=== PATIENT | female | born 1990 | race Caucasian/White ===

== ENCOUNTER 2017-08-18 01:16 | Emergency (ER) | payer OTHER ==
[~2017-08-18] VITALS: Ht 152.4 cm; Wt 48.0 kg
[2017-08-18 01:53] VITALS: BP 114/69; PULSE 64; RESP 18; TEMP 98.4
--- NOTE | 2017-08-18 04:26 | PD ---
HPI Chief Complaint: Psychiatric Symptoms Time Seen by Provider: 04:09 Travel History International Travel<30 days: No Contact w/Intl Traveler<30days: No Traveled to known affect area: No History of Present Illness HPI 27-year-old white female presents emergency department under an EXPARTE. According to the Caballero act the patient has a eating disorder, there is no food at the house and the patient had some twitching. The patient was seen in the emergency department and [place] and medically cleared. She was transferred and accepted by the psychiatrist. The patient in the ER has no medical complaints. She denies any current eating disorder. She states that she is eating normally. She is currently in a relationship with her boyfriend. She denies any suicidal homicidal ideation. No toxic ingestions. She does smoke cigarettes and drink alcohol. No drugs. Denies . PFSH Past Medical History Narrative Medical History of eating disorder Diminished Hearing: No Medical other: Yes (dog bite on face sutured) Tetanus Vaccination: > 5 Years Influenza Vaccination: No ?: Not LMP: Last month : 1 Para: 1 Past Surgical History Surgical History: No Previous Surgery Social History Alcohol Use: Yes (beer 2-3x/week) Tobacco Use: Yes (1/2 ppd) Substance Use: No Allergies-Medications (Allergen,Severity, Reaction): Coded Allergies: No Known Allergies (Unverified , 08/18/17) Review of Systems General / Constitutional: No: Fever Eyes: No: Visual changes HENT: No: Headaches Cardiovascular: No: Chest Pain or Discomfort Respiratory: No: Shortness of Breath Gastrointestinal: No: Abdominal Pain Genitourinary: No: Dysuria Musculoskeletal: No: Pain Skin: No Rash Neurologic: No: Weakness Psychiatric: No: Anxiety, Depression, Suicidal Ideations, Disorder of Thought, Mood Disorder, Substance Abuse, Homicidal Ideation Endocrine: No: Polydipsia Hematologic/Lymphatic: No: Easy Bruising Physical Exam Narrative GENERAL: Well-nourished, well-developed patient. SKIN: Warm and dry. HEAD: Normocephalic and atraumatic. EYES: No scleral icterus. No injection or drainage. ENT: No nasal drainage noted. Mucous membranes pink. Airway patent. NECK: Supple, trachea midline. Moves head freely without obvious discomfort. CARDIOVASCULAR: Regular rate and rhythm without murmurs, gallops, or rubs. RESPIRATORY: Breath sounds equal bilaterally. No accessory muscle use. GASTROINTESTINAL: Abdomen soft, non-tender, nondistended. EXTREMITIES: No cyanosis or edema. BACK: Nontender without obvious deformity. No CVA tenderness. NEURO: Patient is alert and oriented. no sensorimotor deficits. Nonfocal. Normal speech. PSYCH: No delusions. No auditory or visual hallucinations. Data Data Last Documented VS Vital Signs Date Time Temp Pulse Resp B/P (MAP) Pulse Ox O2 Delivery O2 Flow Rate FiO2 08/18/17 01:53 98.4 64 18 114/69 (84) Orders Orders Psych Screen (08/18/17 02:35) MDM Medical Decision Making Medical Screen Exam Complete: Yes Emergency Medical Condition: Yes Medical Record Reviewed: Yes Differential Diagnosis MDM: High Differential diagnoses: Schizophrenia, schizoaffective disorder, bipolar, anxiety, depression, adjustment reaction, mood disorder NOS, ODD, depressive disorder NOS, infection,electrolyte abnormality, malingering. Narrative Course Mental health screening discussed with the patient. Psychiatric screen ordered. The patient had been medically cleared at the hospital [place]. Here the patient has no medical complaints. This is medical clearance for psychiatric admission Diagnosis Primary Impression: Medical clearance for psychiatric admission Condition: Michael David August 18, 2017 04:26
[2017-08-18 06:23] VITALS: BP 120/75; PULSE 76; RESP 18; TEMP 98.4; O2SAT 98
[2017-08-18 11:12] VITALS: BP 119/56; PULSE 58; RESP 16; O2SAT 98
--- NOTE | 2017-08-18 16:24 | PD.PSY.CON ---
Provisional Diagnosis Admission Date [place]. Adjustment disorder with depressed mood History of Present Illness Service Psychiatry Consult Requested By ER Reason for Consult Psychiatry Primary Care Physician No Primary Care Physician HPI Patient was seen today at 2:30 pm The patient is a 27-year-old woman, domiciled with her boyfriend in [place], unemployed, without any previous psychiatric history, no previous psychiatric hospitalizations, no previous suicidal attempts, no significant medical history, who presents emergency department under an EXPARTE. According to the Caballero act the patient has a eating disorder, there is no food at the house and the patient had some twitching. The patient was seen in the emergency department and [place] and medically cleared. She was transferred and accepted by the psychiatrist. The patient in the ER has no medical complaints. She denies any current eating disorder. There is no physical signs of eating disorder. She states that she is eating normally. Labs were reviewed, they are unremarkable. She denies depression, she denies anxiety, she denies yesenia and psychosis. She denies any suicidal homicidal ideation. No toxic ingestions. She does smoke cigarettes and drink alcohol. No drugs. Denies alcohol. Review of Systems Constitutional: DENIES: Diaphoretic episodes, Fatigue, Fever, Weight gain, Weight loss, Chills, Dizziness, Change in appetite, Night Sweats Endocrine: DENIES: Abnorml menstrual pattern, Heat/cold intolerance, Polydipsia , Polyuria, Polyphagia Eyes: DENIES: Blurred vision, Diplopia, Eye inflammation, Eye pain, Vision loss , Photosensitivity, Double Vision Ears, nose, mouth, throat: DENIES: Tinnitus, Hearing loss, Vertigo, Nasal discharge, Oral lesions, Throat pain, Hoarseness, Ear Pain, Running Nose, Epistaxis, Sinus Pain, Toothache, Odynophagia Respiratory: DENIES: Apneas, Cough, Snoring, Wheezing, Hemoptysis, Sputum production, Shortness of breath Cardiovascular: DENIES: Chest pain, Palpitations, Syncope, Dyspnea on Exertion , PND, Lower Extremity Edema, Orthopnea, Claudication Gastrointestinal: DENIES: Abdominal pain, Black stools, Bloody stools, Constipation, Diarrhea, Nausea, Vomiting, Difficulty Swallowing, Anorexia Genitourinary: DENIES: Abnormal vaginal bleeding, Dysmenorrhea, Dyspareunia, Sexual dysfunction, Urinary frequency, Urinary incontinence, Urgency, Hematuria , Dysuria, Nocturia, Vaginal discharge Musculoskeletal: DENIES: Joint pain, Muscle aches, Stiffness, Joint Swelling, Back pain, Neck pain Integumentary: DENIES: Abnormal pigmentation, Pruritus, Rash, Nail changes, Breast masses, Breast skin changes, Nipple discharge Hematologic/lymphatic: DENIES: Bruising, Lymphadenopathy Immunologic/allergic: DENIES: Eczema, Urticaria Psychiatric: DENIES: Anxiety, Confusion, Mood changes, Depression, Hallucinations, Agitation, Suicidal Ideation, Homicidal Ideation, Delusions Past Family Social History Coded Allergies: No Known Allergies (Unverified , 08/18/17) Family Psych History No family psychiatric Social History Patient was born and raised in [place], she lives in [place] with her boyfriend, she is unemployed, college graduate Patient's Strengths (min. 2) Verbal communicate Physical Exam There is no lanugo, no stiffness, no signs of eating disorder, no EPS, no withdrawal Vital Signs Vital Signs Date Time Temp Pulse Resp B/P (MAP) Pulse Ox O2 Delivery O2 Flow Rate FiO2 08/18/17 15:51 08/18/17 11:12 58 16 98 Room Air 08/18/17 06:23 98.4 Mental Status Examination Appearance: Appropriate Consciousness: Alert Orientation: x4 Motor Activity: Normal gait Speech: Unremarkable Language: Adequate Fund of Knowledge: Adequate Attention and Concentration: Adequate Memory: Unremarkable Mood: Appropriate Affect: Appropriate Thought Process & Associations: Intact Thought Content: Appropriate Hallucination Type: None Delusion Type: None Suicidal Ideation: No Suicidal Plan: No Suicidal Intention: No Homicidal Ideation: No Homicidal Plan: No Homicidal Intention: No Insight: Adequate Judgment: Adequate Assessment & Plan Problem List: (1) Adjustment disorder with depressed mood ICD Codes: F43.21 - Adjustment disorder with depressed mood Assessment & Plan: The patient does not present any neuropsychiatric symptoms that require an immediate psychiatric intervention. Patient does not have any evidence of objective or subjective symptomatology of depression, anxiety, yesenia or psychosis. The patient denies suicidal enemas ideation, she denies visual and auditory hallucinations. On longitudinal observation the patient has not presented any behavioral dysregulation, agitation or aggressive behavior. Patient denies symptoms of eating disorder, there is no lab maker or physical signs suggesting eating disorder. Patient does not meet criteria for involuntary psychiatric admission. Caballero act lifted Assessment & Plan Estimated LOS: Riccardo Mendoza MD August 18, 2017 16:24
== END 2017-08-18 15:52 | disposition home or self-care (01) ==
LOC: NEPJ 01:16
DX: F43.21 Adjustment disorder with depressed mood (principal); F50.9 Eating disorder, unspecified; F17.210 Nicotine dependence, cigarettes, uncomplicated
CPT/HCPCS: 99281